=== PATIENT | female | born 1960 | race Caucasian/White ===

== ENCOUNTER 2020-10-20 14:16 | Inpatient (IN) | payer SELFPAY ==
[~2020-10-20] VITALS: Ht 165.1 cm; Wt 113.2 kg
[2020-10-20] MEDS ORDERED: cloNIDine HCL 0.1 MG TAB ONE (14:29)
[2020-10-20] MEDS ORDERED: cloNIDine HCL 0.1 MG TAB PO ONE (14:30)
[2020-10-20 14:53] LABS: Basophils # (auto) 0.1 10 ^3/uL (0-0.2); Basophils % (auto) 0.8 % (0.0-2.0); Eosinophils # (auto) 0.1 10 ^3/uL (0-0.8); Eosinophils % (auto) 1.1 % (0.0-7.0); Hematocrit 47.6 % (36.0-46.0); Hemoglobin 16.9 g/dL (12.2-16.2); Lymphocytes # (auto) 2.1 10 ^3/uL (0.4-5.4); Lymphocytes % (auto) 20.7 % (10.0-50.0); Mean Corpuscular Hemoglobin 32.2 pg (28.0-32.0); Mean Corpuscular Hgb Conc. 35.6 g/dL (32.0-36.0); Mean Corpuscular Volume 90.7 fL (80.0-100.0); Monocytes # (auto) 0.6 10 ^3/uL (0-1.3); Monocytes % (auto) 5.7 % (0.0-12.0); Neutrophils # (auto) 7.4 10 ^3/uL (1.6-8.6); Neutrophils % (auto) 71.7 % (37.0-80.0); Nucleated Red Blood Cells % 0.3 %; Platelet Count (auto) 215 10^3/uL (140-450); Red Blood Cells 5.25 10^6/uL (4.0-5.20); Red Cell Distribution Width 13.2 % (11.8-14.3); White Blood Cell 10.3 10^3/uL (4.4-10.8)
[2020-10-20 15:10] LABS: Albumin 3.9 g/dL (3.4-5.0); Calcium 9.3 mg/dL (8.5-10.1); Potassium 3.7 mmol/L (3.5-5.1)
[2020-10-20 15:15] LABS: Bilirubin, Total 0.9 mg/dL (0.2-1.0); Total Protein 8.7 g/dL (6.4-8.2)
[2020-10-20] MEDS ORDERED: ASPirin 81 mg TAB PO ONE (15:30)
[2020-10-20] MEDS ORDERED: ENOXAPARIN SOD 120 MG/0.8 ML SYRINGE SC ONE (15:30)
[2020-10-20 16:35] LABS: Urine Bacteria NONE SEEN /hpf (None Seen); Urine Blood 2+ /uL (Negative); Urine Hyaline Cast FEW /lpf (0 - 2); Urine Mucus FEW (None Seen); Urine Specific Gravity 1.022 (1.001-1.035); Urine WBC 2 /hpf (0 - 5)
[2020-10-20] MEDS ORDERED: hydrALAZINE HCL 20 MG/ML VL IV ONE (16:45)
[2020-10-20] MEDS ORDERED: ACETAMINOPHEN 500 MG TAB PO PRN (17:15)
[2020-10-20] MEDS ORDERED: ONDANSETRON HCL 4 MG/2 ML VIAL IV PRN (17:15)
[2020-10-20] MEDS: METOPROLOL TARTRATE 50 MG TAB PO SCH ×2 (17:15→23:44)
[2020-10-20] MEDS ORDERED: LISINOPRIL 10 MG TAB PO ONE (17:15)
[2020-10-20] MEDS ORDERED: NITROGLYCERIN 0.4 MG SL TAB SL PRN (17:15)
[2020-10-20] MEDS ORDERED: MORPHINE SULF INJ 2 MG/ML SYRINGE 1ML IV PRN (17:15)
[2020-10-20] MEDS: HYDROcodone-ACET 5/325MG TAB PO PRN (17:36)
[2020-10-20] MEDS: MORPHINE SULF INJ 2 MG/ML SYRINGE 1ML IV PRN (23:40)
[2020-10-21] MEDS: HYDROcodone-ACET 5/325MG TAB PO PRN (02:07)
[2020-10-21 04:00] VITALS: BP 157/89
[2020-10-21] MEDS: cloNIDine HCL 0.1 MG TAB PO PRN ×2 (04:19→11:20)
[2020-10-21] MEDS ORDERED: KETOROLAC TROMETH 30 MG/ML 1ML VIAL IV ONE (04:45)
[2020-10-21 05:18] VITALS: BP 183/100
[2020-10-21 09:15] VITALS: BP 196/94
[2020-10-21] MEDS ORDERED: LORazepam 2MG/ML-1ML VIAL IV PRN (09:30)
[2020-10-21] MEDS: FAMOTIDINE 20 MG TAB PO SCH (09:52)
[2020-10-21] MEDS: LISINOPRIL 20 MG TAB PO SCH (09:52)
[2020-10-21] MEDS: METOPROLOL TARTRATE 50 MG TAB PO SCH ×2 (09:52→22:11)
[2020-10-21] MEDS ORDERED: cloNIDine HCL 0.1 MG TAB PO PRN (11:45)
[2020-10-21 12:18] LABS: % Iron Saturation 39.8 % (15-50)
[2020-10-21 13:01] VITALS: BP 195/136
[2020-10-21] MEDS ORDERED: dilTIAZem 25 MG/5 ML VIAL IV ONE (14:00)
[2020-10-21] MEDS: hydrALAZINE HCL 20 MG/ML VL IV PRN (14:25)
[2020-10-21 14:54] LABS: Amphetamine Screen, Urine NEGATIVE (NEGATIVE); Barbiturate Scree,Urine NEGATIVE (NEGATIVE); Benzodiazephine Screen, Urine NEGATIVE (NEGATIVE); Cannabinoid Screen, Urine NEGATIVE (NEGATIVE); Cocaine Screen, Urine NEGATIVE (NEGATIVE); Opiate Scree,Urine POSITIVE (NEGATIVE); Phencyclidine Screen, Urine NEGATIVE (NEGATIVE)
[2020-10-21 16:47] VITALS: BP 156/87
[2020-10-21] MEDS: hydrALAZINE HCL 25 MG TAB PO SCH (17:40)
[2020-10-21 22:00] VITALS: BP 162/77
[2020-10-21] MEDS: ATORVASTATIN 20 MG TAB PO SCH (22:10)
[2020-10-21] MEDS: PRAMIPEXOLE DIHYDROCHLORIDE MO 0.25 MG TAB PO SCH (22:11)
[2020-10-22] VITALS (7 sets, daily range): BP systolic 131–198; BP diastolic 58–84
[2020-10-22] MEDS: hydrALAZINE HCL 25 MG TAB PO SCH ×4 (00:07→19:40)
[2020-10-22] MEDS: MORPHINE SULF INJ 2 MG/ML SYRINGE 1ML IV PRN ×4 (01:12→20:17)
[2020-10-22] MEDS: hydrALAZINE HCL 20 MG/ML VL IV PRN ×4 (01:13→23:40)
[2020-10-22 05:29] LABS: Basophils # (auto) 0.1 10 ^3/uL (0-0.2); Basophils % (auto) 0.7 % (0.0-2.0); Eosinophils # (auto) 0.2 10 ^3/uL (0-0.8); Eosinophils % (auto) 1.4 % (0.0-7.0); Hemoglobin 16.3 g/dL (12.2-16.2); Lymphocytes # (auto) 2.2 10 ^3/uL (0.4-5.4); Lymphocytes % (auto) 20.6 % (10.0-50.0); Mean Corpuscular Hemoglobin 32.8 pg (28.0-32.0); Mean Corpuscular Hgb Conc. 36.3 g/dL (32.0-36.0); Mean Corpuscular Volume 90.5 fL (80.0-100.0); Monocytes # (auto) 0.7 10 ^3/uL (0-1.3); Monocytes % (auto) 6.3 % (0.0-12.0); Neutrophils # (auto) 7.5 10 ^3/uL (1.6-8.6); Nucleated Red Blood Cells % 0.4 %; Platelet Count (auto) 213 10^3/uL (140-450); Red Blood Cells 4.98 10^6/uL (4.0-5.20); Red Cell Distribution Width 13.1 % (11.8-14.3); White Blood Cell 10.6 10^3/uL (4.4-10.8)
[2020-10-22 05:53] LABS: Potassium 3.2 mmol/L (3.5-5.1)
[2020-10-22 06:02] LABS: Albumin 3.4 g/dL (3.4-5.0); BUN/Creatinine Ratio 24.2; Bilirubin, Total 0.7 mg/dL (0.2-1.0); Calcium 8.9 mg/dL (8.5-10.1); Magnesium 2.2 mg/dL (1.6-2.6); Total Protein 7.4 g/dL (6.4-8.2)
[2020-10-22] MEDS: LISINOPRIL 20 MG TAB PO SCH (09:41)
[2020-10-22] MEDS: FAMOTIDINE 20 MG TAB PO SCH (09:42)
[2020-10-22] MEDS: METOPROLOL TARTRATE 50 MG TAB PO SCH ×2 (09:42→21:41)
[2020-10-22] MEDS: ASPirin-EC 81 mg tab PO SCH (09:42)
[2020-10-22] MEDS ORDERED: POTASSIUM CHL 20 Meq TABLET PO ONE (21:15)
[2020-10-22] MEDS: PRAMIPEXOLE DIHYDROCHLORIDE MO 0.25 MG TAB PO SCH (21:41)
[2020-10-22] MEDS: ATORVASTATIN 20 MG TAB PO SCH (21:41)
[2020-10-22] MEDS: HYDROcodone-ACET 5/325MG TAB PO PRN (23:44)
[2020-10-23] VITALS (7 sets, daily range): BP systolic 138–196; BP diastolic 45–91
[2020-10-23] MEDS: hydrALAZINE HCL 20 MG/ML VL IV PRN ×3 (06:24→22:16)
[2020-10-23] MEDS: MORPHINE SULF INJ 2 MG/ML SYRINGE 1ML IV PRN ×2 (06:35→13:10)
[2020-10-23] MEDS: GABAPENTIN 100 MG CAP PO SCH ×2 (09:47→22:16)
[2020-10-23] MEDS: METOPROLOL TARTRATE 50 MG TAB PO SCH (09:47)
[2020-10-23] MEDS: ASPirin-EC 81 mg tab PO SCH (09:47)
[2020-10-23] MEDS: LISINOPRIL 20 MG TAB PO SCH ×3 (09:48→17:58)
[2020-10-23] MEDS: FAMOTIDINE 20 MG TAB PO SCH (09:48)
[2020-10-23] MEDS: amLODIPine BESYLATE 5 MG TAB PO SCH (09:48)
[2020-10-23] MEDS ORDERED: SPIRONOLACTONE 25 MG TAB PO SCH (10:00)
[2020-10-23] MEDS ORDERED: CHOLECALCIFEROL (VITD3) 2,000 UNIT CAP/TAB PO ONE (15:45)
[2020-10-23] MEDS ORDERED: DEXTROSE (50%) 50ML SYRG IV PRN (15:45)
[2020-10-23] MEDS: ACCU-CHEK COMFORT CURVE STRIP VI SCH ×2 (17:52→22:04)
[2020-10-23] MEDS: InsuLIN REG 1unit/0.01ml Soln (100units/ml) SC SCH ×2 (17:53→22:00)
[2020-10-23] MEDS: ATORVASTATIN 20 MG TAB PO SCH (22:15)
[2020-10-23] MEDS: METOPROLOL TARTRATE 25 MG TAB PO SCH (22:15)
[2020-10-23] MEDS: PRAMIPEXOLE DIHYDROCHLORIDE MO 0.25 MG TAB PO SCH (22:16)
[2020-10-23] MEDS: KETOROLAC TROMETH 30 MG/ML 1ML VIAL IV PRN (23:27)
[2020-10-24 05:00] VITALS: BP 150/57
[2020-10-24] MEDS: InsuLIN REG 1unit/0.01ml Soln (100units/ml) SC SCH ×2 (06:48→11:24)
[2020-10-24] MEDS: ACCU-CHEK COMFORT CURVE STRIP VI SCH ×2 (06:50→11:19)
[2020-10-24 08:13] LABS: BUN/Creatinine Ratio 26.7; Calcium 8.7 mg/dL (8.5-10.1); Magnesium 2.4 mg/dL (1.6-2.6); Potassium 3.7 mmol/L (3.5-5.1)
[2020-10-24 08:54] VITALS: BP 165/71
[2020-10-24] MEDS: hydrALAZINE HCL 20 MG/ML VL IV PRN (08:56)
[2020-10-24] MEDS: LISINOPRIL 20 MG TAB PO SCH (09:06)
[2020-10-24] MEDS: ASPirin-EC 81 mg tab PO SCH (09:06)
[2020-10-24] MEDS: METOPROLOL TARTRATE 25 MG TAB PO SCH (09:07)
[2020-10-24] MEDS: GABAPENTIN 100 MG CAP PO SCH (09:08)
[2020-10-24] MEDS: amLODIPine BESYLATE 5 MG TAB PO SCH (09:08)
[2020-10-24] MEDS: KETOROLAC TROMETH 30 MG/ML 1ML VIAL IV PRN (09:16)
[2020-10-24] MEDS: FAMOTIDINE 20 MG TAB PO SCH (10:00)
[2020-10-24] MEDS ORDERED: CHOLECALCIFEROL (VITD3) 2,000 UNIT CAP/TAB PO SCH (10:00)
[2020-10-24] MEDS ORDERED: metFORMIN HYDROCHLORIDE 500 MG TAB PO ONE (12:15)
[2020-10-24] MEDS ORDERED: GABA100C9 PO (12:19)
[2020-10-24] MEDS ORDERED: LISI40TA11 PO (12:19)
[2020-10-24] MEDS ORDERED: METF-370 PO (12:19)
[2020-10-24] MEDS ORDERED: AML5T PO (12:19)
[2020-10-24] MEDS ORDERED: CHOL500023 PO (12:19)
[2020-10-24] MEDS ORDERED: METO1TAB77 PO (12:19)
[2020-10-24 12:47] VITALS: BP 149/67
== END 2020-10-24 14:09 | disposition home or self-care (01) | DRG 280 ==
LOC: ER 14:16 → TELE 17:07 → TELE-WESTW 22:27
PROVIDERS: ADMIT Nurse Practitioner Acute Care; ATTEND Internal Medicine
DX: I16.0 Hypertensive urgency (principal); N17.0 Acute kidney failure with tubular necrosis; I21.A1 Myocardial infarction type 2; Z68.41 Body mass index [BMI] 40.0-44.9, adult; M54.17 Radiculopathy, lumbosacral region; N18.9 Chronic kidney disease, unspecified; E55.9 Vitamin D deficiency, unspecified; E11.22 Type 2 diabetes mellitus with diabetic chronic kidney disease; E78.5 Hyperlipidemia, unspecified; Z20.822 Contact with and (suspected) exposure to COVID-19; E07.9 Disorder of thyroid, unspecified; E66.01 Morbid (severe) obesity due to excess calories; G25.81 Restless legs syndrome; G47.00 Insomnia, unspecified; I12.9 Hypertensive chronic kidney disease with stage 1 through stage 4 chronic kidney disease, or unspecified chronic kidney disease; M25.78 Osteophyte, vertebrae; M43.16 Spondylolisthesis, lumbar region; M48.061 Spinal stenosis, lumbar region without neurogenic claudication; M51.26 Other intervertebral disc displacement, lumbar region; Z79.899 Other long term (current) drug therapy; W18.39XA Other fall on same level, initial encounter; Y93.89 Activity, other specified; Y92.89 Other specified places as the place of occurrence of the external cause; Y99.8 Other external cause status
CPT/HCPCS: 36415; 70551; 72131; 72148; 72170; 76775; 80048; 80053; 80061; 80307; 81001; 82306; 82550; 82728; 82962; 83036; 83540; 83550; 83735; 83880; 84439; 84443; 84484; 85025; 86141; 87426; 93005; 93306; 93970; 93975; 96372; 96374; 97163; G0378; J1815; J1885